=== PATIENT | male | born 1945 | race Caucasian/White ===

== ENCOUNTER 2016-07-25 05:27 | Emergency (ER) | payer MEDICARE | END 2016-07-25 06:07 | disposition home or self-care (01) | LOC: ED 05:27 | DX: R33.9 Retention of urine, unspecified (principal); N40.1 Benign prostatic hyperplasia with lower urinary tract symptoms; E78.00 Pure hypercholesterolemia, unspecified; Z95.1 Presence of aortocoronary bypass graft; F41.9 Anxiety disorder, unspecified; Z79.899 Other long term (current) drug therapy ==